=== PATIENT | female | born 1965 | race Caucasian/White ===

== ENCOUNTER 2017-09-05 09:54 | Inpatient (IN) | payer MEDICAID ==
[2017-09-05] VITALS (9 sets, daily range): BP systolic 138–192; BP diastolic 68–110; PULSE 101–133; RESP 18–24; TEMP 97.8–98.3; O2SAT 93–95
[~2017-09-05] VITALS: Ht 181.6 cm; Wt 96.9 kg
[~2017-09-05 09:54] MED LIST: ATRO17AE INH; CELE100C PO; CYCL-36 PO; DUONSOL2 NEB; FLUTI110I INH; LEVO75TA3 PO; LEXA10TA PO; LORTA5 PO; LURA1TAB PO; NAPR-697 PO; NEUR600T PO; OMEP20TA PO; SIMV10 PO; TRAZ150T75 PO; VENTAER INH
[2017-09-05] MEDS ORDERED: SODIUM CHLORID 0.9% 500 ML INJ 500 ML IV ONE (10:30)
[2017-09-05] MEDS ORDERED: SODIUM CHLORIDE 0.9% FLUSH 10 ML FLUSH IVF PRN (10:30)
[2017-09-05] MEDS ORDERED: methylPREDNISolone SOD SUCC 125 MG/2 ML VIAL IV PUSH ONE (10:30)
[2017-09-05] MEDS: RESP: ALBUTEROL 2.5 MG/IPRATROPIUM 0.5 MG NEB (SCH) INH ×2 (10:30→10:31)
--- NOTE | 2017-09-05 10:49 | PD ---
HPI Chief Complaint: Cold / Flu Symptoms Time Seen by Provider: 10:05 Travel History International Travel<30 days: No Contact w/Intl Traveler<30days: No Traveled to known affect area: No History of Present Illness HPI The patient is a 52-year-old female who presents to the emergency department for shortness of breath. The patient states that her shortness of breath has been ongoing for several weeks, recently progressive the last several days. The patient does complain of a dry mostly nonproductive cough, wheezing, now states she has lost her voice. The patient does have a history of COPD, denies any history CHF, pulmonary embolism, or DVT. She denies any recent hospitalizations, travel, surgeries, or lower extremity edema. She denies any assisted fever, chills, or sweats. She does complain of shortness of breath that is worse with exertion, but still present at rest. She has been using her inhalers at home with minimal relief of her symptoms. The patient's primary physician is Dr. Adan. Symptoms are moderate, progressive last several weeks, and there are no current alleviating factors. The patient does complain of bilateral lower chest wall pain with coughing, but denies any substernal pressure or discomfort. She denies any associated nausea, vomiting, or diaphoresis. PFSH Past Medical History Bipolar Disorder: Yes Depression: Yes High Cholesterol: Yes COPD: Yes Diabetes: Yes Patient Takes Glucophage: Yes Hepatitis: Yes (HEPATITIS C) Musculoskeletal: Yes (IN PAIN MANAGEMENT FOR CHRONIC BACK PAIN ) Respiratory: Yes (COPD) Thyroid Disease: Yes ?: Not : 1 Para: 1 Miscarriage: 0 : 0 Past Surgical History Appendectomy: Yes Social History Alcohol Use: No Tobacco Use: Yes (/2 PPD) Substance Use: No Allergies-Medications (Allergen,Severity, Reaction): Coded Allergies: No Known Allergies (Verified Allergy, Unknown, 09/05/17) Reported Meds & Prescriptions Reported Meds & Active Scripts Active Reported Flovent Hfa 12 GM Inh (Fluticasone Propionate) 220 Mcg/Act Inh 2 Puff INH TID Use daily at the same time. Dulera 120 Act Inh (Mometasone-Formoterol 120 Act Inh) 200-5 Mcg/Act Inh 2 Puff INH BID Atrovent HFA 12.9 GM Inh (Ipratropium [place]) 17 Mcg/Actuation Aer 2 Puff INH TID Metformin (Metformin HCl) 850 Mg Tab 850 Mg PO BIDPC Simvastatin 10 Mg Tab 10 Mg PO DAILY Gabapentin 600 Mg Tab 600 Mg PO TID Methocarbamol 500 Mg Tab 500 Mg PO TID Hydrocodone-Acetaminophen 5-325 mg Tab 1 Tab PO Q12HR PRN Celecoxib 100 Mg Cap 100 Mg PO BID Escitalopram (Escitalopram Oxalate) 20 Mg Tab 20 Mg PO DAILY Naproxen 500 Mg Tab 500 Mg PO BID Trazodone (Trazodone HCl) 150 Mg Tablet 150 Mg PO HS Omeprazole 20 Mg Tab 20 Mg PO DAILY Latuda (Lurasidone) 80 Mg Tab 80 Mg PO DAILY Review of Systems Except as stated in HPI: all other systems reviewed are Neg General / Constitutional: No: Fever HENT: No: Headaches, Lightheadedness Cardiovascular: Positive: Other (bilateral lower rib pain secondary to coughing ), No: Chest Pain or Discomfort, Diaphoresis Respiratory: Positive: Cough, Shortness of Breath, Wheezing Gastrointestinal: No: Nausea, Vomiting, Abdominal Pain Musculoskeletal: No: Edema Neurologic: No: Weakness Physical Exam Narrative GENERAL: Awake, alert, pleasant 52-year-old female who appears her stated age and is in mild respiratory distress. SKIN: Focused skin assessment warm/dry. HEAD: Atraumatic. Normocephalic. EYES: Pupils equal and round. No scleral icterus. No injection or drainage. ENT: No nasal bleeding or discharge. Mucous membranes pink and moist. NECK: Trachea midline. No JVD. CARDIOVASCULAR: Regular, tachycardic with a heart rate of 130. RESPIRATORY: Mild tachypnea with a respiratory rate of 22. Diminished breath sounds with audible wheezing. GASTROINTESTINAL: Abdomen soft, non-tender, nondistended. No rebound tenderness. MUSCULOSKELETAL: No obvious deformities. No clubbing. No cyanosis. No edema. Calves are soft bilaterally. NEUROLOGICAL: Awake and alert. No obvious cranial nerve deficits. Motor grossly within normal limits. Normal speech. PSYCHIATRIC: Appropriate mood and affect; insight and judgment normal. Data Data Last Documented VS Vital Signs Date Time Temp Pulse Resp B/P (MAP) Pulse Ox O2 Delivery O2 Flow Rate FiO2 09/05/17 12:36 113 18 141/68 (92) 95 Room Air 09/05/17 10:32 21 09/05/17 09:57 98.3 Orders Orders Complete Blood Count With Diff (09/05/17 10:20) Comprehensive Metabolic Panel (09/05/17 10:20) B-Type Natriuretic Peptide (09/05/17 10:20) Act Partial Throm Time (Ptt) (09/05/17 10:20) Prothrombin Time / Inr (Pt) (09/05/17 10:20) Magnesium (Mg) (09/05/17 10:20) Ckmb (Isoenzyme) Profile (09/05/17 10:20) Troponin I (09/05/17 10:20) Influenzae A/B Antigen (09/05/17 10:20) Blood Culture (09/05/17 10:20) Iv Access Insert/Monitor (09/05/17 10:20) Electrocardiogram (09/05/17 10:20) Ecg Monitoring (09/05/17 10:20) Oximetry (09/05/17 10:20) Oxygen Administration (09/05/17 10:20) Chest, Single Ap (09/05/17 10:20) Sodium Chloride 0.9% Flush (Ns Flush) (09/05/17 10:30) Methylprednisolone So Succ Inj (Solumedr (09/05/17 10:30) Albuterol-Ipratropium Neb (Duoneb Neb) (09/05/17 10:30) Lactic Acid (09/05/17 10:20) Sodium Chlorid 0.9% 500 Ml Inj (Ns 500 M (09/05/17 10:30) Ct Pulmonary Angiogram (09/05/17 ) CKMB (09/05/17 11:10) CKMB% (09/05/17 11:10) Iohexol 350 Inj (Omnipaque 350 Inj) (09/05/17 13:08) Ceftriaxone Inj (Rocephin Inj) (09/05/17 13:30) Azithromycin Inj (Zithromax Inj) (09/05/17 13:30) Admit Order (Ed Use Only) (09/05/17 14:07) Sodium Chlor 0.9% 1000 Ml Inj (Ns 1000 M (09/05/17 14:15) Labs Laboratory Tests Test 09/05/17 11:00 09/05/17 11:10 White Blood Count 19.8 TH/MM3 Red Blood Count 4.10 MIL/MM3 Hemoglobin 12.1 GM/DL Hematocrit 36.7 % Mean Corpuscular Volume 89.4 FL Mean Corpuscular Hemoglobin 29.5 PG Mean Corpuscular Hemoglobin Concent 32.9 % Red Cell Distribution Width 15.2 % Platelet Count 474 TH/MM3 Mean Platelet Volume 8.6 FL Neutrophils (%) (Auto) 61.7 % Lymphocytes (%) (Auto) 27.8 % Monocytes (%) (Auto) 8.5 % Eosinophils (%) (Auto) 1.5 % Basophils (%) (Auto) 0.5 % Neutrophils # (Auto) 12.2 TH/MM3 Lymphocytes # (Auto) 5.5 TH/MM3 Monocytes # (Auto) 1.7 TH/MM3 Eosinophils # (Auto) 0.3 TH/MM3 Basophils # (Auto) 0.1 TH/MM3 CBC Comment AUTO DIFF Differential Total Cells Counted 100 Neutrophils % (Manual) 70 % Band Neutrophils % 1 % Lymphocytes % 22 % Monocytes % 5 % Basophils % 1 % Neutrophils # (Manual) 14.3 TH/MM3 Metamyelocytes 1 % Differential Comment FINAL DIFF MANUAL Platelet Estimate HIGH Platelet Morphology Comment NORMAL Red Cell Morphology Comment NORMAL Lactic Acid Level 1.4 mmol/L B-Type Natriuretic Peptide 7 PG/ML Prothrombin Time 10.7 SEC Prothromb Time International Ratio 1.1 RATIO Activated Partial Thromboplast Time 24.9 SEC Blood Urea Nitrogen 7 MG/DL Creatinine 0.57 MG/DL Random Glucose 94 MG/DL Total Protein 7.9 GM/DL Albumin 2.5 GM/DL Calcium Level 8.5 MG/DL Magnesium Level 1.5 MG/DL Alkaline Phosphatase 99 U/L Aspartate Amino Transf (AST/SGOT) 34 U/L Alanine Aminotransferase (ALT/SGPT) 46 U/L Total Bilirubin 0.2 MG/DL Sodium Level 135 MEQ/L Potassium Level 4.4 MEQ/L Chloride Level 101 MEQ/L Carbon Dioxide Level 25.7 MEQ/L Anion Gap 8 MEQ/L Estimat Glomerular Filtration Rate 111 ML/MIN Total Creatine Kinase 233 U/L Creatine Kinase MB 5.9 NG/ML Creatine Kinase MB % 2.5 % Troponin I LESS THAN 0.02 NG/ML MDM Medical Decision Making Medical Screen Exam Complete: Yes Emergency Medical Condition: Yes Medical Record Reviewed: Yes Interpretation(s) EKG reveals sinus tachycardia with a heart rate of 117. RSR prime in V1. Laboratory Tests Test 09/05/17 11:00 09/05/17 11:10 White Blood Count 19.8 TH/MM3 Red Blood Count 4.10 MIL/MM3 Hemoglobin 12.1 GM/DL Hematocrit 36.7 % Mean Corpuscular Volume 89.4 FL Mean Corpuscular Hemoglobin 29.5 PG Mean Corpuscular Hemoglobin Concent 32.9 % Red Cell Distribution Width 15.2 % Platelet Count 474 TH/MM3 Mean Platelet Volume 8.6 FL Neutrophils (%) (Auto) 61.7 % Lymphocytes (%) (Auto) 27.8 % Monocytes (%) (Auto) 8.5 % Eosinophils (%) (Auto) 1.5 % Basophils (%) (Auto) 0.5 % Neutrophils # (Auto) 12.2 TH/MM3 Lymphocytes # (Auto) 5.5 TH/MM3 Monocytes # (Auto) 1.7 TH/MM3 Eosinophils # (Auto) 0.3 TH/MM3 Basophils # (Auto) 0.1 TH/MM3 CBC Comment AUTO DIFF Differential Total Cells Counted 100 Neutrophils % (Manual) 70 % Band Neutrophils % 1 % Lymphocytes % 22 % Monocytes % 5 % Basophils % 1 % Neutrophils # (Manual) 14.3 TH/MM3 Metamyelocytes 1 % Differential Comment FINAL DIFF MANUAL Platelet Estimate HIGH Platelet Morphology Comment NORMAL Red Cell Morphology Comment NORMAL Lactic Acid Level 1.4 mmol/L B-Type Natriuretic Peptide 7 PG/ML Prothrombin Time 10.7 SEC Prothromb Time International Ratio 1.1 RATIO Activated Partial Thromboplast Time 24.9 SEC Blood Urea Nitrogen 7 MG/DL Creatinine 0.57 MG/DL Random Glucose 94 MG/DL Total Protein 7.9 GM/DL Albumin 2.5 GM/DL Calcium Level 8.5 MG/DL Magnesium Level 1.5 MG/DL Alkaline Phosphatase 99 U/L Aspartate Amino Transf (AST/SGOT) 34 U/L Alanine Aminotransferase (ALT/SGPT) 46 U/L Total Bilirubin 0.2 MG/DL Sodium Level 135 MEQ/L Potassium Level 4.4 MEQ/L Chloride Level 101 MEQ/L Carbon Dioxide Level 25.7 MEQ/L Anion Gap 8 MEQ/L Estimat Glomerular Filtration Rate 111 ML/MIN Total Creatine Kinase 233 U/L Creatine Kinase MB 5.9 NG/ML Creatine Kinase MB % 2.5 % Troponin I LESS THAN 0.02 NG/ML Last Impressions Chest X-Ray 09/05/17 1020 Signed Impressions: Service Date/Time: September 10:35 - CONCLUSION: 1. No acute cardiopulmonary disease. Luke Li MD CT Angiography 09/05/17 0000 Signed Impressions: Service Date/Time: September 12:47 - CONCLUSION: 1. No evidence of pulmonary embolism. 2. Scattered patchy opacities bilaterally consistent with probable pneumonia. Clinical correlation is recommended. Followup CT of the chest after treatment for pneumonia is recommended to confirm resolution of these patchy opacities. 3. Tiny pericardial effusion. 4. Stable bilateral adrenal nodules measuring 2.6 x 1.5 cm on the right and 2.5 x 1.8 cm on the left. Carlos Lofton MD Differential Diagnosis Differential diagnosis includes COPD exacerbation, bronchitis, pneumonia, pleural effusion, congestive heart failure, ACS, pulmonary embolism. Narrative Course IV was established, labs are drawn and sent, and the patient was placed on cardiac telemetry monitoring and continuous pulse oximetry monitoring. EKG was ordered and interpreted. Chest x-ray was obtained. The patient was administered Solu-Medrol 125 mg intravenously and duo nebs 3. Chest x-rays unremarkable. White count is elevated and 19.8. Lactic acid and BNP are normal. The patient continued be tachycardic at 115, therefore, CT pulmonary angiogram was ordered to evaluate for possible pulmonary embolism. CT reveals bilateral pneumonia, therefore, patient was administered Rocephin and Zithromax. The patient's white count is elevated, she is tachycardic, consistent with sepsis. Patient was administered another liter of IV fluids. She will be admitted to the on-call medical service. Sepsis Criteria SIRS Criteria (2 or more): Heart rate over 90, RR > 20 or PaCO2 < 32, WBC > 58893, < 4000 or > 10% bands Sepsis Criteria (SIRS+source): Infect source susp/known Criteria Outcome: Meets sepsis criteria Physician Communication Physician Communication [facility] I discussed the patient with Dr. Adamson who agrees with admission. Diagnosis Primary Impression: Bilateral pneumonia Qualified Codes: J18.9 - Pneumonia, unspecified organism Additional Impression: Sepsis Qualified Codes: A41.9 - Sepsis, unspecified organism Admitting Information Admitting Physician Requests: Admit Condition: Stable Tyshawn Leonardo MD Sep 05, 2017 10:49
--- NOTE | 2017-09-05 11:07 | RADRPT ---
EXAM DATE/TIME: 09/05/2017 10:35 [facility] COMPARISON: CHEST SINGLE AP, November 29, 2015, 13:32. INDICATIONS : Short of breath MEDICAL HISTORY : Chronic obstructive pulmonary disease. SURGICAL HISTORY : None. ENCOUNTER: Initial ACUITY: 2 weeks PAIN SCORE: 3/10 LOCATION: Bilateral chest FINDINGS: A single view of the chest demonstrates the lungs to be symmetrically aerated without evidence of mas s, infiltrate or effusion. The cardiomediastinal contours are unremarkable. Osseous structures are intact. CONCLUSION: 1. No acute cardiopulmonary disease. Luke Li MD on September 05, 2017 at 11:05 Board Certified Radiologist. This report was verified electronically.
[2017-09-05 11:43] LABS: AUTOMATED NEUTROPHIL # 12.2 TH/MM3 (1.8-7.7); BASOPHIL # 0.1 TH/MM3 (0-0.2); BASOPHIL % 0.5 % (0.0-2.0); EOSINOPHIL # 0.3 TH/MM3 (0-0.4); EOSINOPHIL % 1.5 % (0.0-4.0); HEMATOCRIT 36.7 % (35.0-46.0); HEMOGLOBIN 12.1 GM/DL (11.6-15.3); LYMPH % 27.8 % (9.0-44.0); LYMPHOCYTE # 5.5 TH/MM3 (1.0-4.8); MEAN CELL VOLUME 89.4 FL (80.0-100.0); MEAN CORPUSCULAR HEMOGLOBIN 29.5 PG (27.0-34.0); MEAN CORPUSCULAR HGB CONC 32.9 % (32.0-36.0); MEAN PLATELET VOLUME 8.6 FL (7.0-11.0); MONO % 8.5 % (0.0-8.0); MONOCYTE # 1.7 TH/MM3 (0-0.9); NEUT % 61.7 % (16.0-70.0); PLATELET COUNT 474 TH/MM3 (150-450); RED CELL DISTRIBUTION WIDTH 15.2 % (11.6-17.2); WHITE BLOOD COUNT 19.8 TH/MM3 (4.0-11.0)
[2017-09-05 11:52] LABS: INTERNATIONAL NORMALIZED RATIO 1.1 RATIO; PROTHROMBIN TIME - PATIENT 10.7 SEC (9.8-11.6)
[2017-09-05 12:02] LABS: ALBUMIN 2.5 GM/DL (3.4-5.0); ALT (GPT) 46 U/L (10-53); AST (GOT) 34 U/L (15-37); BICARBONATE 25.7 MEQ/L (21.0-32.0); BLOOD UREA NITROGEN 7 MG/DL (7-18); CALCIUM 8.5 MG/DL (8.5-10.1); CHLORIDE 101 MEQ/L (98-107); CREATININE 0.57 MG/DL (0.50-1.00); GLOMERULAR FILTRATION RATE 111 ML/MIN (>89); GLUCOSE,RANDOM 94 MG/DL (74-106); MAGNESIUM 1.5 MG/DL (1.5-2.5); SODIUM (NA) 135 MEQ/L (136-145)
[2017-09-05 12:06] LABS: ALKALINE PHOSPHATASE 99 U/L (45-117); TOTAL BILIRUBIN ADULT 0.2 MG/DL (0.2-1.0); TOTAL PROTEIN 7.9 GM/DL (6.4-8.2); TROPONIN I LESS THAN 0.02 NG/ML (0.02-0.05)
[2017-09-05 12:25] LABS: BANDS 1 % (0-6); BASOPHILS 1 % (0-2); LYMPHOCYTES 22 % (9-44); METAMYELOCYTES 1 % (0-1); MONOCYTES 5 % (0-8); NEUTROPHIL # MANUAL DIFF 14.3 TH/MM3 (1.8-7.7); POLYS (SEG NEUTROPHILS) 70 % (16-70)
[2017-09-05] MEDS ORDERED: IOHEXOL 350 MG/ML 10 ML VIAL (for RAD DIAG) IVCONTRAST ONE (13:08)
--- NOTE | 2017-09-05 13:25 | RADRPT ---
EXAM DATE/TIME: 09/05/2017 12:47 [facility] COMPARISON: CT PULMONARY ANGIOGRAM, November 29, 2015, 16:03. INDICATIONS : Short of breath, cough IV CONTRAST: 75 cc Omnipaque 350 (iohexol) IV RADIATION DOSE: 11.02 CTDIvol (mGy) MEDICAL HISTORY : Chronic obstructive pulmonary disease. Hepatitis C. Diabetes SURGICAL HISTORY : Appendectomy. ENCOUNTER: Initial ACUITY: 3 days PAIN SCALE: 5/10 LOCATION: chest TECHNIQUE: Volumetric scanning of the chest was performed using a pulmonary embolism protocol MIP images were re constructed. Using automated exposure control and adjustment of the mA and/or kV according to patien t size, radiation dose was kept as low as reasonably achievable to obtain optimal diagnostic quality images. DICOM format image data is available electronically for review and comparison. Follow-up recommendations for detected pulmonary nodules are based at a minimum on nodule size and pa tient risk factors according to Fleischner Society Guidelines. FINDINGS: There is no evidence of pulmonary embolism. Scattered patchy opacities are noted bilaterally consiste nt with probable pneumonia. Clinical correlation is recommended. Followup CT of the chest after treat ment for pneumonia is recommended to confirm resolution of these scattered patchy opacities. Tiny per icardial effusion is noted. No mediastinal, hilar or axillary lymphadenopathy is noted. No pleural ef fusion is noted. Bilateral adrenal nodules are stable and measure 2.6 x 1.5 cm on the right and 2.5 x 1.8 cm on the left. CONCLUSION: 1. No evidence of pulmonary embolism. 2. Scattered patchy opacities bilaterally consistent with probable pneumonia. Clinical correlation is recommended. Followup CT of the chest after treatment for pneumonia is recommended to confirm resolu tion of these patchy opacities. 3. Tiny pericardial effusion. 4. Stable bilateral adrenal nodules measuring 2.6 x 1.5 cm on the right and 2.5 x 1.8 cm on the left. Carlos Lofton MD on September 05, 2017 at 13:17 Board Certified Radiologist. This report was verified electronically.
[2017-09-05] MEDS ORDERED: cefTRIAXone INJ 1,000 MG in SODIUM CHLORIDE 0.9% INJ 100 ML IV ONE (13:30)
[2017-09-05] MEDS ORDERED: AZITHROMYCIN INJ 500 MG in SODIUM CHLOR 0.9% 250 ML INJ 250 ML IV ONE (13:30)
[2017-09-05] MEDS ORDERED: IPRA17I INH (13:55)
[2017-09-05] MEDS ORDERED: METH500T3 PO (13:55)
[2017-09-05] MEDS ORDERED: ESCI20TA PO (13:55)
[2017-09-05] MEDS ORDERED: CELE1CAP6 PO (13:55)
[2017-09-05] MEDS ORDERED: LURA80 PO (13:55)
[2017-09-05] MEDS ORDERED: FLUTI220I INH (13:55)
[2017-09-05] MEDS ORDERED: NAPR500T2 PO (13:55)
[2017-09-05] MEDS ORDERED: TRAZ1TAB14 PO (13:55)
[2017-09-05] MEDS ORDERED: SIMV10TA PO (13:55)
[2017-09-05] MEDS ORDERED: METF850T PO (13:55)
[2017-09-05] MEDS ORDERED: HYDR-3516 PO (13:55)
[2017-09-05] MEDS ORDERED: GABA600T PO (13:55)
[2017-09-05] MEDS ORDERED: OMEP20TA93 PO (13:55)
[2017-09-05] MEDS ORDERED: DULE200A INH (13:55)
[2017-09-05] MEDS ORDERED: SODIUM CHLOR 0.9% 1000 ML INJ 1,000 ML IV ONE (14:15)
[2017-09-05] MEDS ORDERED: NALOXONE HCL 0.4 MG/ML AMP IV PUSH PRN (15:45)
[2017-09-05] MEDS ORDERED: SODIUM CHLORIDE 0.9% FLUSH 10 ML FLUSH IV FLUSH PRN (15:45)
[2017-09-05] MEDS ORDERED: ACETAMINOPHEN 325 MG TAB PO PRN ×2 (15:45)
[2017-09-05] MEDS ORDERED: ONDANSETRON HCL 4 MG/2 ML VIAL IVP PRN (15:45)
[2017-09-05] MEDS ORDERED: ACETAMINOPHEN/HYDROcodone 325 MG/5 MG TAB PO PRN (15:45)
[2017-09-05] MEDS ORDERED: PILL SPLITTER OTHER PRN (16:30)
[2017-09-05] MEDS ORDERED: RESP: ALBUTEROL 2.5 MG/IPRATROPIUM 0.5 MG NEB (PRN) NEB (16:45)
--- NOTE | 2017-09-05 16:52 | HHI.HP ---
[facility] Service [place] [facility] Primary Care Physician Artur Adan M.D. Admission Diagnosis bilateral pneumonia, sepsis, leukocytosis, hypoxia Diagnoses: Chief Complaint: Shortness of breath, cough Travel History International Travel<30 Days: No Contact w/Intl Traveler <30 Da: No Traveled to Known Affected Are: No History of Present Illness The patient is a 52-year-old female with a past medical history of COPD who is presenting to the hospital with shortness of breath and cough. She says her breathing is always poor but over the past couple of weeks she has experienced worsening of her shortness of breath and cough. She says that her significant other thought the flu and brought it home to her. She said that she did get her flu shot this year. She said that her breathing got a lot more difficult and her coughing has been uncontrollable. She is not on home oxygen. She does endorse grayish mucus production. She says that she has not noticed any fevers at home. She does continue to smoke cigarettes and knows that she needs to quit. She says she started to develop a hoarse voice last week. She denies any dysuria and has been having regular bowel movements. She complains of chronic pain in her knee and back. Review of Systems Except as stated in HPI: all other systems reviewed are Neg Past Family Social History Past Medical History COPD Diabetes Hepatitis C virus Bipolar disorder Osteoarthritis Past Surgical History Appendectomy Right knee fracture status post surgery Allergies: Coded Allergies: No Known Allergies (Verified Allergy, Unknown, 09/05/17) Active Ordered Medications Current Medications Medications (Trade) Dose Ordered Sig/Corrine Route Start Time Stop Time Status Last Admin (CeleBREX) 100 mg BID PO 09/05/17 21:00 (Lexapro) 20 mg DAILY PO 09/06/17 09:00 (Neurontin) 600 mg TID PO 09/05/17 18:00 (Latuda) 80 mg DAILY PO 09/06/17 09:00 (Protonix) 20 mg DAILY PO 09/06/17 09:00 (Pravachol) 20 mg DAILY PO 09/06/17 09:00 (Desyrel) 150 mg HS PO 09/05/17 21:00 Sodium Chloride 1,000 ml @ 100 mls/hr Q10H IV 09/05/17 16:00 (NS Flush) 2 ml UNSCH PRN IV FLUSH 09/05/17 15:45 (NS Flush) 2 ml BID IV FLUSH 09/05/17 21:00 (Tylenol) 650 mg Q4H PRN PO 09/05/17 15:45 (Zofran Inj) 4 mg Q6H PRN IVP 09/05/17 15:45 (Lovenox Inj) 30 mg Q24H SQ 09/05/17 17:00 (Tylenol) 650 mg Q6H PRN PO 09/05/17 15:45 ([place] 5-325 Mg) 1 tab Q4H PRN PO 09/05/17 15:45 ([place] 10-325 Mg) 1 tab Q4H PRN PO 09/05/17 15:45 (Narcan Inj) 0.4 mg UNSCH PRN IV PUSH 09/05/17 15:45 (Shameka-Colace) 1 tab BID PO 09/05/17 21:00 (Pill Splitter) 1 ea UNSCH PRN OTHER 09/05/17 16:30 (SoluMEDROL INJ) 40 mg Q8HR IV PUSH 09/05/17 16:45 UNV (Duoneb Neb) 1 ampule Q2HR NEB PRN NEB 09/05/17 16:45 UNV (Duoneb Neb) 1 ampule Q6HR WHILE AWAKE NEB NEB 09/05/17 16:45 UNV (Robitussin Ac 200-20 Mg/10 ml Liq) 10 ml ONCE ONCE PO 09/05/17 16:45 09/05/17 16:46 UNV (Robitussin Ac 200-20 Mg/10 ml Liq) 10 ml Q6H PRN PO 09/05/17 16:45 UNV Ceftriaxone Sodium 1000 mg/ Sodium Chloride 100 ml @ 200 mls/hr Q24H IV 09/06/17 13:00 UNV Azithromycin 500 mg/Sodium Chloride 250 ml @ 250 mls/hr Q24H IV 09/06/17 13:00 UNV Family History Various cancers Bipolar disorder Schizophrenia Social History The patient smokes one pack daily. She does not drink or use illicit substances. Physical Exam Vital Signs Vital Signs Date Time Temp Pulse Resp B/P (MAP) Pulse Ox O2 Delivery O2 Flow Rate FiO2 09/05/17 12:36 113 18 141/68 (92) 95 Room Air 09/05/17 11:56 95 09/05/17 11:55 18 95 09/05/17 11:55 95 Room Air 09/05/17 10:32 95 21 09/05/17 09:57 98.3 133 24 177/93 (121) 95 Room Air Physical Exam GENERAL: This is a well-nourished, well-developed patient, coughing uncontrollably. SKIN: No rashes, ecchymoses or lesions. Cool and dry. HEAD: Atraumatic. Normocephalic. No temporal or scalp tenderness. EYES: Pupils equal round and reactive. Extraocular motions intact. No scleral icterus. No injection or drainage. ENT: Nose without bleeding, purulent drainage or septal hematoma. Throat without erythema, tonsillar hypertrophy or exudate. Uvula midline. Airway patent. Hoarse voice. NECK: Trachea midline. No JVD or lymphadenopathy. Supple, nontender, no meningeal signs. CARDIOVASCULAR: Tachycardic. No obvious murmur. RESPIRATORY: Decreased air movement in bilateral wheezing appreciated. GASTROINTESTINAL: Abdomen soft, non-tender, nondistended. No hepato-splenomegaly , or palpable masses. No guarding. MUSCULOSKELETAL: Extremities without clubbing, cyanosis, or edema. No joint tenderness, effusion, or edema noted. NEUROLOGICAL: Awake and alert. Cranial nerves II through XII intact. Motor and sensory grossly within normal limits. Five out of 5 muscle strength in all muscle groups. Normal speech. Laboratory Laboratory Tests Test 09/05/17 11:00 09/05/17 11:10 White Blood Count 19.8 Red Blood Count 4.10 Hemoglobin 12.1 Hematocrit 36.7 Mean Corpuscular Volume 89.4 Mean Corpuscular Hemoglobin 29.5 Mean Corpuscular Hemoglobin Concent 32.9 Red Cell Distribution Width 15.2 Platelet Count 474 Mean Platelet Volume 8.6 Neutrophils (%) (Auto) 61.7 Lymphocytes (%) (Auto) 27.8 Monocytes (%) (Auto) 8.5 Eosinophils (%) (Auto) 1.5 Basophils (%) (Auto) 0.5 Neutrophils # (Auto) 12.2 Lymphocytes # (Auto) 5.5 Monocytes # (Auto) 1.7 Eosinophils # (Auto) 0.3 Basophils # (Auto) 0.1 CBC Comment AUTO DIFF Differential Total Cells Counted 100 Neutrophils % (Manual) 70 Band Neutrophils % 1 Lymphocytes % 22 Monocytes % 5 Basophils % 1 Neutrophils # (Manual) 14.3 Metamyelocytes 1 Differential Comment FINAL DIFF MANUAL Platelet Estimate HIGH Platelet Morphology Comment NORMAL Red Cell Morphology Comment NORMAL Lactic Acid Level 1.4 B-Type Natriuretic Peptide 7 Prothrombin Time 10.7 Prothromb Time International Ratio 1.1 Activated Partial Thromboplast Time 24.9 Blood Urea Nitrogen 7 Creatinine 0.57 Random Glucose 94 Total Protein 7.9 Albumin 2.5 Calcium Level 8.5 Magnesium Level 1.5 Alkaline Phosphatase 99 Aspartate Amino Transf (AST/SGOT) 34 Alanine Aminotransferase (ALT/SGPT) 46 Total Bilirubin 0.2 Sodium Level 135 Potassium Level 4.4 Chloride Level 101 Carbon Dioxide Level 25.7 Anion Gap 8 Estimat Glomerular Filtration Rate 111 Total Creatine Kinase 233 Creatine Kinase MB 5.9 Creatine Kinase MB % 2.5 Troponin I LESS THAN 0.02 Date/Time Source Procedure Growth Status 09/05/17 11:00 Blood Peripheral Aerobic Blood Culture Pending Received 09/05/17 11:00 Blood Peripheral Anaerobic Blood Culture Pending Received 09/05/17 11:10 Nasal Aspirate Influenza Types A,B Antigen (MUSA) - Final NEGATIVE FOR FLU A AND B ANTIGEN.... Complete Result Diagram: 09/05/17 1100 09/05/17 1110 Imaging Last Impressions Chest X-Ray 09/05/17 1020 Signed Impressions: Service Date/Time: September 10:35 - CONCLUSION: 1. No acute cardiopulmonary disease. Luke Li MD CT Angiography 09/05/17 0000 Signed Impressions: Service Date/Time: September 12:47 - CONCLUSION: 1. No evidence of pulmonary embolism. 2. Scattered patchy opacities bilaterally consistent with probable pneumonia. Clinical correlation is recommended. Followup CT of the chest after treatment for pneumonia is recommended to confirm resolution of these patchy opacities. 3. Tiny pericardial effusion. 4. Stable bilateral adrenal nodules measuring 2.6 x 1.5 cm on the right and 2.5 x 1.8 cm on the left. MD Margarita Piña VTE Risk Assessment Caprini VTE Risk Assessment: Mod/High Risk (score >= 2) Caprini Risk Assessment Model Point Value = 1 Point Value = 2 Point Value = 3 Point Value = 5 Age 41-60 Minor surgery BMI > 25 kg/m2 Swollen legs Varicose veins or History of unexplained or recurrent spontaneous Oral contraceptives or hormone replacement Sepsis (< 1 month) Serious lung disease, including pneumonia (< 1 month) Abnormal pulmonary function Acute myocardial infarction Congestive heart failure (< 1 month) History of inflammatory bowel disease Medical patient at bed rest Age 61-74 Arthroscopic surgery Major open surgery (> 45 min) Laparoscopic surgery (> 45 min) Malignancy Confined to bed (> 72 hours) Immobilizing plaster cast Central venous access Age >= 75 History of VTE Family history of VTE Factor V Leiden Prothrombin [id number] Lupus anticoagulant Anticardiolipin antibodies Elevated serum homocysteine Heparin-induced thrombocytopenia Other congenital or acquired thrombophilia Stroke (< 1 month) Elective arthroplasty Hip, pelvis, or leg fracture Acute spinal cord injury (< 1 month) Prophylaxis Regimen Total Risk Factor Score Risk Level Prophylaxis Regimen 0-1 Low Early ambulation 2 Moderate Order ONE of the following: *Sequential Compression Device (SCD) *Heparin 5000 units SQ BID 3-4 Higher Order ONE of the following medications: *Heparin 5000 units SQ TID *Enoxaparin/Lovenox 40 mg SQ daily (WT < 150 kg, CrCl > 30 mL/min) *Enoxaparin/Lovenox 30 mg SQ daily (WT < 150 kg, CrCl > 10-29 mL/min) *Enoxaparin/Lovenox 30 mg SQ BID (WT < 150 kg, CrCl > 30 mL/min) AND/OR *Sequential Compression Device (SCD) 5 or more Highest Order ONE of the following medications: *Heparin 5000 units SQ TID (Preferred with Epidurals) *Enoxaparin/Lovenox 40 mg SQ daily (WT < 150 kg, CrCl > 30 mL/min) *Enoxaparin/Lovenox 30 mg SQ daily (WT < 150 kg, CrCl > 10-29 mL/min) *Enoxaparin/Lovenox 30 mg SQ BID (WT < 150 kg, CrCl > 30 mL/min) AND *Sequential Compression Device (SCD) Assessment and Plan Assessment and Plan COPD exacerbation/ CAP The patient presents with worsening shortness of breath and coughing. She was influenza negative. Chest CT showed: No evidence of pulmonary embolism; Scattered patchy opacities bilaterally consistent with probable pneumonia; Followup CT of the chest after treatment for pneumonia is recommended to confirm resolution of these patchy opacities. S/p ceftriaxone and azithromycin in the ED. - Change antibiotics to IV doxycycline to avoid interaction with her psychiatric medications. - Continue IV Solu-Medrol. - Standing and as needed nebulizers. - Oxygen as needed. - Incentive spirometry. - Encourage ambulation. - Sputum and blood cultures pending. - Smoking cessation instruction. - Robitussin-AC as needed. - Resume home COPD regimen as steroids and nebs were weaned off. Chronic pain The patient endorses chronic knee and back pain. - Physical therapy. - Continue [place] as needed. - Continue celecoxib. Diabetes The patient is on metformin as an outpatient. - Hold metformin. - Insulin sliding scale. Tobacco abuse The patient smokes 1 pack of cigarettes daily. - Cessation instruction. - Nicotine patch. Adrenal nodules CT scan revealed stable bilateral adrenal nodules measuring 2.6 x 1.5 cm on the right and 2.5 x 1.8 cm on the left. - Outpatient follow-up. PPx: Lovenox Discussed Condition With Patient, Dr. Leonardo, nurse Physician Certification 2 Midnight Certification Type: Admission for Inpatient Services Order for Inpatient Services The services are ordered in accordance with Medicare regulations or non- Medicare payer requirements, as applicable. In the case of services not specified as inpatient-only, they are appropriately provided as inpatient services in accordance with the 2-midnight benchmark. Estimated LOS (days): 2 days is the estimated time the patient will need to remain in the hospital, assuming treatment plan goals are met and no additional complications. Post-Hospital Plan: Home Cory Adamson DO Sep 05, 2017 16:52
[2017-09-05] MEDS: SODIUM CHLOR 0.9% 1000 ML INJ 1,000 ML IV SCH ×2 (17:00→23:13)
[2017-09-05] MEDS: ENOXAPARIN SODIUM 30 MG/0.3 ML SYRINGE SQ SCH (18:19)
[2017-09-05] MEDS: GABAPENTIN 300 MG CAP PO SCH (18:19)
[2017-09-05] MEDS ORDERED: guaiFENesin/CODEINE SYRUP 200 MG/20 MG/10 ML CUP PO ONE (18:45)
[2017-09-05] MEDS: NICOTINE 21 MG/24 HR PATCH T-DERMAL SCH (18:57)
[2017-09-05] MEDS: methylPREDNISolone SOD SUCC 40 MG/1 ML VIAL IV PUSH SCH ×2 (18:57→21:29)
[2017-09-05] MEDS ORDERED: DEXTROSE 50% IN WATER 50 ML VIAL(D50) IV PUSH PRN (19:00)
[2017-09-05] MEDS ORDERED: GLUCAGON 1 MG/ML VIAL OTHER PRN (19:00)
[2017-09-05] MEDS: RESP: ALBUTEROL 2.5 MG/IPRATROPIUM 0.5 MG NEB (SCH) NEB (19:24)
[2017-09-05] MEDS: INSULIN ASPART SUPPLEMENTAL SCALE SQ SCH ×2 (19:24→21:00)
[2017-09-05] MEDS: ACETAMINOPHEN/HYDROcodone 325 MG/10 MG TAB PO PRN (19:24)
[2017-09-05] MEDS: SODIUM CHLORIDE 0.9% FLUSH 10 ML FLUSH IV FLUSH SCH (21:29)
[2017-09-05] MEDS: traZODone HCL 100 MG TAB PO SCH (21:29)
[2017-09-05] MEDS: ENALAPRILAT 1.25 MG/ML VIAL IV PUSH PRN (21:29)
[2017-09-05] MEDS: DOCUSATE SODIUM 50 MG/SENNA 8.6 MG TAB PO SCH (21:29)
[2017-09-05] MEDS: CELECOXIB 100 MG CAP PO SCH (21:29)
[2017-09-05] MEDS: guaiFENesin/CODEINE SYRUP 200 MG/20 MG/10 ML CUP PO PRN (21:30)
[2017-09-05] MEDS: BENZONATATE 100 MG CAP PO PRN (23:11)
[2017-09-06] VITALS (15 sets, daily range): BP systolic 140–194; BP diastolic 75–100; PULSE 80–107; RESP 18–21; TEMP 97.3–98.3; O2SAT 92–97
[2017-09-06] MEDS: ACETAMINOPHEN/HYDROcodone 325 MG/10 MG TAB PO PRN ×5 (01:44→20:36)
[2017-09-06] MEDS: cloNIDine HCL 0.1 MG TAB PO PRN ×2 (01:44→20:45)
[2017-09-06] MEDS: SODIUM CHLOR 0.9% 1000 ML INJ 1,000 ML IV SCH ×2 (04:23→15:31)
[2017-09-06] MEDS: methylPREDNISolone SOD SUCC 40 MG/1 ML VIAL IV PUSH SCH ×3 (05:19→20:36)
[2017-09-06] MEDS: ENALAPRILAT 1.25 MG/ML VIAL IV PUSH PRN ×2 (05:19→22:48)
[2017-09-06] MEDS: BENZONATATE 100 MG CAP PO PRN (05:19)
[2017-09-06 05:40] LABS: AUTOMATED NEUTROPHIL # 11.8 TH/MM3 (1.8-7.7); BASOPHIL # 0.1 TH/MM3 (0-0.2); BASOPHIL % 0.4 % (0.0-2.0); HEMATOCRIT 35.8 % (35.0-46.0); HEMOGLOBIN 11.8 GM/DL (11.6-15.3); LYMPH % 12.1 % (9.0-44.0); LYMPHOCYTE # 1.7 TH/MM3 (1.0-4.8); MEAN CELL VOLUME 89.6 FL (80.0-100.0); MEAN CORPUSCULAR HEMOGLOBIN 29.6 PG (27.0-34.0); MEAN PLATELET VOLUME 8.7 FL (7.0-11.0); MONO % 3.4 % (0.0-8.0); MONOCYTE # 0.5 TH/MM3 (0-0.9); NEUT % 84.1 % (16.0-70.0); PLATELET COUNT 449 TH/MM3 (150-450); RED CELL DISTRIBUTION WIDTH 15.3 % (11.6-17.2); WHITE BLOOD COUNT 14.1 TH/MM3 (4.0-11.0)
[2017-09-06 06:30] LABS: ALBUMIN 2.3 GM/DL (3.4-5.0); AST (GOT) 21 U/L (15-37); BICARBONATE 29.2 MEQ/L (21.0-32.0); BLOOD UREA NITROGEN 9 MG/DL (7-18); CALCIUM 8.5 MG/DL (8.5-10.1); CHLORIDE 104 MEQ/L (98-107); CREATININE 0.52 MG/DL (0.50-1.00); GLOMERULAR FILTRATION RATE 124 ML/MIN (>89); GLUCOSE,RANDOM 171 MG/DL (74-106); SODIUM (NA) 141 MEQ/L (136-145)
[2017-09-06 06:31] LABS: ALT (GPT) 40 U/L (10-53)
[2017-09-06 06:33] LABS: ALKALINE PHOSPHATASE 88 U/L (45-117); TOTAL BILIRUBIN ADULT 0.2 MG/DL (0.2-1.0); TOTAL PROTEIN 7.6 GM/DL (6.4-8.2)
[2017-09-06 07:41] LABS: BANDS 1 % (0-6); LYMPHOCYTES 5 % (9-44); MONOCYTES 5 % (0-8); MYELOCYTES 1 % (0-0); NEUTROPHIL # MANUAL DIFF 12.7 TH/MM3 (1.8-7.7); POLYS (SEG NEUTROPHILS) 88 % (16-70)
[2017-09-06] MEDS: RESP: ALBUTEROL 2.5 MG/IPRATROPIUM 0.5 MG NEB (SCH) NEB ×3 (08:00→20:05)
[2017-09-06] MEDS: CELECOXIB 100 MG CAP PO SCH ×2 (08:54→20:37)
[2017-09-06] MEDS: DOCUSATE SODIUM 50 MG/SENNA 8.6 MG TAB PO SCH ×2 (08:54→21:00)
[2017-09-06] MEDS: PANTOPRAZOLE SOD 20 MG DELAYED RELEASE TAB PO SCH (08:54)
[2017-09-06] MEDS: DOXYCYCLINE INJ 100 MG in SODIUM CHLORIDE 0.9% INJ 100 ML IV SCH ×2 (08:54→20:36)
[2017-09-06] MEDS: INSULIN ASPART SUPPLEMENTAL SCALE SQ SCH ×4 (08:54→20:38)
[2017-09-06] MEDS: PRAVASTATIN SOD 20 MG TAB PO SCH (08:55)
[2017-09-06] MEDS: NICOTINE 21 MG/24 HR PATCH T-DERMAL SCH (08:55)
[2017-09-06] MEDS: ESCITALOPRAM OXALATE 20 MG TAB PO SCH (08:55)
[2017-09-06] MEDS: GABAPENTIN 300 MG CAP PO SCH ×3 (08:55→17:04)
[2017-09-06] MEDS: REMOVE OLD PATCH T-DERMAL SCH (08:56)
[2017-09-06] MEDS: SODIUM CHLORIDE 0.9% FLUSH 10 ML FLUSH IV FLUSH SCH ×2 (08:56→20:37)
[2017-09-06] MEDS: LURASIDONE 80 MG TAB PO SCH (09:00)
[2017-09-06] MEDS: guaiFENesin/CODEINE SYRUP 200 MG/20 MG/10 ML CUP PO PRN ×2 (09:05→15:05)
[2017-09-06] MEDS ORDERED: PNEUMOCOCCAL POLYVALENT INJ 25 MCG/0.5 ML SYR IM ONE (10:00)
[2017-09-06] MEDS ORDERED: cefTRIAXone INJ 1,000 MG in SODIUM CHLORIDE 0.9% INJ 100 ML IV SCH (13:00)
[2017-09-06] MEDS ORDERED: AZITHROMYCIN INJ 500 MG in SODIUM CHLOR 0.9% 250 ML INJ 250 ML IV SCH (13:00)
--- NOTE | 2017-09-06 15:14 | HHI.PR ---
Subjective Remarks Patient reports her breathing slightly better today. She is still coughing a lot and having a hard time sleeping. Objective Vitals Vital Signs Date Time Temp Pulse Resp B/P (MAP) Pulse Ox O2 Delivery O2 Flow Rate FiO2 09/06/17 12:03 97.9 103 21 140/75 (96) 92 09/06/17 11:54 94 Nasal Cannula 2.00 09/06/17 08:03 97.8 84 21 140/100 (113) 93 09/06/17 06:08 178/92 (120) 09/06/17 04:13 80 09/06/17 04:00 98.3 97 18 94 09/06/17 00:11 92 09/06/17 00:00 97.3 107 18 186/93 (124) 92 09/05/17 21:18 Nasal Cannula 2.00 09/05/17 20:00 97.8 109 20 185/98 (127) 93 09/05/17 19:56 108 09/05/17 19:26 93 Nasal Cannula 2.00 09/05/17 18:13 98.2 101 18 192/108 (136) 94 190/110 (136) 09/05/17 17:13 09/05/17 17:12 110 18 138/68 (91) 95 Room Air I/O 09/05/17 09/05/17 09/05/17 09/06/17 09/06/17 09/06/17 07:00 15:00 23:00 07:00 15:00 23:00 Intake Total 600 ml 1250 ml 1093 ml Balance 600 ml 1250 ml 1093 ml Intake IV Total 600 ml 1250 ml 1093 ml # Voids 4 # Bowel Movements 1 Result Diagram: 09/06/17 0439 09/06/17 0439 Imaging Last Impressions Chest X-Ray 09/05/17 1020 Signed Impressions: Service Date/Time: September 10:35 - CONCLUSION: 1. No acute cardiopulmonary disease. Luke Li MD CT Angiography 09/05/17 0000 Signed Impressions: Service Date/Time: September 12:47 - CONCLUSION: 1. No evidence of pulmonary embolism. 2. Scattered patchy opacities bilaterally consistent with probable pneumonia. Clinical correlation is recommended. Followup CT of the chest after treatment for pneumonia is recommended to confirm resolution of these patchy opacities. 3. Tiny pericardial effusion. 4. Stable bilateral adrenal nodules measuring 2.6 x 1.5 cm on the right and 2.5 x 1.8 cm on the left. Carlos Lofton MD Objective Remarks GENERAL: This is a well-nourished, well-developed patient, in no apparent distress. CARDIOVASCULAR: Normal rate and regular rhythm without murmurs, gallops, or rubs. RESPIRATORY: Air movement is fair. Diffuse rhonchi and faint expiratory wheezing. GASTROINTESTINAL: Abdomen soft, non-tender, non-distended. Normal active bowel sounds MUSCULOSKELETAL: Extremities without cyanosis, or edema. NEURO: Alert & Oriented x4 to person, place, time, situation. Moves all ext x4 PSYCH: Appropriate mood and affect. A/P Assessment and Plan COPD exacerbation/ CAP The patient presents with worsening shortness of breath and coughing. She was influenza negative. Chest CT showed: No evidence of pulmonary embolism; Scattered patchy opacities bilaterally consistent with probable pneumonia; Followup CT of the chest after treatment for pneumonia is recommended to confirm resolution of these patchy opacities. S/p ceftriaxone and azithromycin in the ED. -Continue IV doxycycline to avoid interaction with her psychiatric medications. - Continue IV Solu-Medrol. - Standing and as needed nebulizers. - Oxygen as needed. - Incentive spirometry. - Encourage ambulation. - Sputum and blood cultures pending. - Smoking cessation instruction. - Robitussin-AC as needed. - Resume home COPD regimen as steroids and nebs were weaned off. Chronic pain The patient endorses chronic knee and back pain. - Physical therapy. - Continue [place] as needed. - Continue celecoxib. Diabetes The patient is on metformin as an outpatient. - Hold metformin. - Insulin sliding scale. Tobacco abuse The patient smokes 1 pack of cigarettes daily. - Cessation instruction. - Nicotine patch. Adrenal nodules CT scan revealed stable bilateral adrenal nodules measuring 2.6 x 1.5 cm on the right and 2.5 x 1.8 cm on the left. - Outpatient follow-up. PPx: Lovenox Discharge Planning Continue current treatment, if continues to improve, may potentially transition to oral medications and discharge home tomorrow. Syeda Youssef MD Sep 06, 2017 15:14
[2017-09-06] MEDS: ENOXAPARIN SODIUM 30 MG/0.3 ML SYRINGE SQ SCH (17:04)
[2017-09-06] MEDS: traZODone HCL 100 MG TAB PO SCH (20:37)
--- NOTE | 2017-09-06 23:18 | EKG ---
Date Performed: 09/05/2017 Time Performed: 11:38:15 PTAGE: 52 years EKG: SINUS TACHYCARDIA POSSIBLE RIGHT VENTRICULAR CONDUCTION DELAY ABNORMAL RHYTHM ECG INTERPRET ATION BASED ON A DEFAULT AGE OF 40 YEARS PREVIOUS TRACING : 11/29/2015 14.03 Compared to prior tracing no significant change DOCTOR: Jason Alexis Interpretating Date/Time 09/06/2017 23:18:43
[2017-09-07] VITALS: BP 179/82; PULSE 83; RESP 16; TEMP 97.4; O2SAT 92
[2017-09-07] MEDS: ACETAMINOPHEN/HYDROcodone 325 MG/10 MG TAB PO PRN ×2 (02:59→10:30)
[2017-09-07] MEDS: guaiFENesin/CODEINE SYRUP 200 MG/20 MG/10 ML CUP PO PRN ×2 (03:00→10:39)
[2017-09-07 04:00] VITALS: BP 172/100; PULSE 82; RESP 18; TEMP 98; O2SAT 98
[2017-09-07] MEDS: methylPREDNISolone SOD SUCC 40 MG/1 ML VIAL IV PUSH SCH (04:53)
[2017-09-07] MEDS: cloNIDine HCL 0.1 MG TAB PO PRN (04:53)
[2017-09-07 06:27] VITALS: BP 168/86
[2017-09-07] MEDS: SODIUM CHLOR 0.9% 1000 ML INJ 1,000 ML IV SCH (06:49)
[2017-09-07] MEDS: INSULIN ASPART SUPPLEMENTAL SCALE SQ SCH (08:00)
[2017-09-07 08:03] VITALS: BP 150/90; PULSE 81; RESP 21; TEMP 99.4; O2SAT 96
[2017-09-07] MEDS: RESP: ALBUTEROL 2.5 MG/IPRATROPIUM 0.5 MG NEB (SCH) NEB ×2 (08:54→12:47)
[2017-09-07 08:56] VITALS: O2SAT 98
[2017-09-07] MEDS: DOXYCYCLINE INJ 100 MG in SODIUM CHLORIDE 0.9% INJ 100 ML IV SCH (10:25)
[2017-09-07] MEDS: SODIUM CHLORIDE 0.9% FLUSH 10 ML FLUSH IV FLUSH SCH (10:27)
[2017-09-07] MEDS: GABAPENTIN 300 MG CAP PO SCH (10:28)
[2017-09-07] MEDS: ESCITALOPRAM OXALATE 20 MG TAB PO SCH (10:28)
[2017-09-07] MEDS: LURASIDONE 80 MG TAB PO SCH (10:28)
[2017-09-07] MEDS: CELECOXIB 100 MG CAP PO SCH (10:28)
[2017-09-07] MEDS: PRAVASTATIN SOD 20 MG TAB PO SCH (10:28)
[2017-09-07] MEDS: PANTOPRAZOLE SOD 20 MG DELAYED RELEASE TAB PO SCH (10:28)
[2017-09-07] MEDS: NICOTINE 21 MG/24 HR PATCH T-DERMAL SCH (10:29)
[2017-09-07] MEDS: REMOVE OLD PATCH T-DERMAL SCH (10:29)
[2017-09-07] MEDS: DOCUSATE SODIUM 50 MG/SENNA 8.6 MG TAB PO SCH (10:29)
[2017-09-07] MEDS ORDERED: PRED10PA PO (11:05)
[2017-09-07] MEDS ORDERED: Albuterol-Ipratropium Neb NEB (11:05)
[2017-09-07] MEDS ORDERED: DOXY100C PO (11:05)
--- NOTE | 2017-09-07 15:27 | HHI.DS ---
Discharge Summary Admission Date Sep 05, 2017 at 14:08 Discharge Date: Sep 07, 2017 Admitting Diagnosis bilateral pneumonia, sepsis, leukocytosis, hypoxia (1) Pneumonia ICD Code: J18.9 - Pneumonia, unspecified organism Procedures None Brief History - From Admission History of present illness from the admitting physician The patient is a 52-year-old female with a past medical history of COPD who is presenting to the hospital with shortness of breath and cough. She says her breathing is always poor but over the past couple of weeks she has experienced worsening of her shortness of breath and cough. She says that her significant other thought the flu and brought it home to her. She said that she did get her flu shot this year. She said that her breathing got a lot more difficult and her coughing has been uncontrollable. She is not on home oxygen. She does endorse grayish mucus production. She says that she has not noticed any fevers at home. She does continue to smoke cigarettes and knows that she needs to quit. She says she started to develop a hoarse voice last week. She denies any dysuria and has been having regular bowel movements. She complains of chronic pain in her knee and back. CBC/BMP: 09/06/17 0439 09/06/17 0439 Significant Findings Laboratory Tests Test 09/05/17 11:00 09/05/17 11:10 09/06/17 04:39 White Blood Count 19.8 TH/MM3 (4.0-11.0) 14.1 TH/MM3 (4.0-11.0) Platelet Count 474 TH/MM3 (150-450) Monocytes (%) (Auto) 8.5 % (0.0-8.0) Neutrophils # (Auto) 12.2 TH/MM3 (1.8-7.7) 11.8 TH/MM3 (1.8-7.7) Lymphocytes # (Auto) 5.5 TH/MM3 (1.0-4.8) Monocytes # (Auto) 1.7 TH/MM3 (0-0.9) Neutrophils # (Manual) 14.3 TH/MM3 (1.8-7.7) 12.7 TH/MM3 (1.8-7.7) Platelet Estimate HIGH (NORMAL) HIGH (NORMAL) Albumin 2.5 GM/DL (3.4-5.0) 2.3 GM/DL (3.4-5.0) Sodium Level 135 MEQ/L (136-145) Total Creatine Kinase 233 U/L (26-192) Creatine Kinase MB 5.9 NG/ML (0.5-3.6) Troponin I LESS THAN 0.02 NG/ML Neutrophils (%) (Auto) 84.1 % (16.0-70.0) Neutrophils % (Manual) 88 % (16-70) Lymphocytes % 5 % (9-44) Myelocytes 1 % (0-0) Platelet Morphology Comment ENLARGED (NORMAL) Random Glucose 171 MG/DL (74-106) Imaging Last Impressions Chest X-Ray 09/05/17 1020 Signed Impressions: Service Date/Time: September 10:35 - CONCLUSION: 1. No acute cardiopulmonary disease. Luke Li MD CT Angiography 09/05/17 0000 Signed Impressions: Service Date/Time: September 12:47 - CONCLUSION: 1. No evidence of pulmonary embolism. 2. Scattered patchy opacities bilaterally consistent with probable pneumonia. Clinical correlation is recommended. Followup CT of the chest after treatment for pneumonia is recommended to confirm resolution of these patchy opacities. 3. Tiny pericardial effusion. 4. Stable bilateral adrenal nodules measuring 2.6 x 1.5 cm on the right and 2.5 x 1.8 cm on the left. Carlos Lofton MD PE at Discharge GENERAL: This is a well-nourished, well-developed patient, in no apparent distress. CARDIOVASCULAR: Normal rate and regular rhythm without murmurs, gallops, or rubs. RESPIRATORY: Air movement is fair. Diffuse rhonchi and faint expiratory wheezing. GASTROINTESTINAL: Abdomen soft, non-tender, non-distended. Normal active bowel sounds MUSCULOSKELETAL: Extremities without cyanosis, or edema. NEURO: Alert & Oriented x4 to person, place, time, situation. Moves all ext x4 PSYCH: Appropriate mood and affect. Pt update on day of discharge Patient reports she is feeling much better. She wants to go home. Breathing more comfortably. Coughing less. Hospital Course 52-year-old female admitted with community-acquired pneumonia/COPD exacerbation. The patient was admitted and treated with IV antibiotics and IV Solu-Medrol. Her conditions improved. She is discharged on a prednisone taper and to continue treatment with oral antibiotics. Chest CT showed No evidence of pulmonary embolism; Scattered patchy opacities bilaterally consistent with probable pneumonia; Followup CT of the chest after treatment for pneumonia is recommended to confirm resolution of these patchy opacities. Patient is advised to follow-up outpatient to have repeat chest CT. Other conditions treated include: Chronic pain The patient endorses chronic knee and back pain. - Physical therapy. - Continue [place] as needed. - Continue celecoxib. Diabetes The patient is on metformin as an outpatient. -Metformin was held and she was treated with sliding scale insulin with Accu- Cheks. Metformin resumed on discharge. Tobacco abuse The patient smokes 1 pack of cigarettes daily. - Cessation instruction given. Adrenal nodules CT scan revealed stable bilateral adrenal nodules measuring 2.6 x 1.5 cm on the right and 2.5 x 1.8 cm on the left. - Outpatient follow-up advised. Pt Condition on Discharge: Good Discharge Disposition: Discharge Home Discharge Time: <= 30 minutes Discharge Instructions DIET: Follow Instructions for: Heart Healthy Diet Activities you can perform: Regular-No Restrictions New Medications: Doxycycline Hyclate (Doxycycline Hyclate) 100 Mg Cap 100 MG PO BID for Infection, #20 CAP 0 Refills Prednisone (21) 10 mg tab Dose Pack (Prednisone (21) 10 mg tab Dose Pack) 10 Mg Pack 10 MG PO DIRECTED for Inflammation, #1 DSPK 0 Refills [Albuterol-Ipratropium Neb] () 1 AMPULE NEBU 1 AMPULE NEB Q4HR NEB PRN for dyspnea, #1 BOX Continued Medications: Celecoxib (Celecoxib) 100 Mg Cap 100 MG PO BID for Pain Management, CAP 0 Refills Escitalopram (Escitalopram) 20 Mg Tab 20 MG PO DAILY, #30 TAB 0 Refills Fluticasone 12 GM Inh (Flovent Hfa 12 GM Inh) 220 Mcg/Act Inh 2 PUFF INH TID for Asthma Management, #1 INHALER 0 Refills Use daily at the same time. Gabapentin (Gabapentin) 600 Mg Tab 600 MG PO TID, #90 TAB 0 Refills Hydrocodone-Acetaminophen (Hydrocodone-Acetaminophen) 5-325 mg Tab 1 TAB PO Q12HR PRN for PAIN, TAB 0 Refills Ipratropium HFA 12.9 GM Inh (Atrovent HFA 12.9 GM Inh) 17 Mcg/Actuation Aer 2 PUFF INH TID, #1 INHALER 0 Refills Lurasidone (Latuda) 80 Mg Tab 80 MG PO DAILY, #30 TAB 0 Refills Metformin (Metformin) 850 Mg Tab 850 MG PO BIDPC for Blood Sugar Management, TAB 0 Refills Methocarbamol (Methocarbamol) 500 Mg Tab 500 MG PO TID for Muscle Spasm, #90 TAB 0 Refills Mometasone-Formoterol 120 Act Inh (Dulera 120 Act Inh) 200-5 Mcg/Act Inh 2 PUFF INH BID for Asthma Management, #1 INHALER 0 Refills Naproxen (Naproxen) 500 Mg Tab 500 MG PO BID, #60 TAB 0 Refills Omeprazole (Omeprazole) 20 Mg Tab 20 MG PO DAILY, #30 TAB 0 Refills Simvastatin (Simvastatin) 10 Mg Tab 10 MG PO DAILY for Cholesterol Management, #30 TAB 0 Refills Trazodone (Trazodone) 150 Mg Tablet 150 MG PO HS for Control Depression, #30 TAB 0 Refills Syeda Youssef MD Sep 07, 2017 15:27
== END 2017-09-07 13:20 | disposition home or self-care (01) | DRG 190 ==
LOC: NEPC 09:54 → NEDA 14:08 → N04B 17:42
PROVIDERS: ADMIT Hospitalist; ATTEND Family Medicine
DX: J44.1 Chronic obstructive pulmonary disease with (acute) exacerbation (principal); J18.9 Pneumonia, unspecified organism; E27.8 Other specified disorders of adrenal gland; J44.0 Chronic obstructive pulmonary disease with (acute) lower respiratory infection; G89.29 Other chronic pain; E11.9 Type 2 diabetes mellitus without complications; F17.210 Nicotine dependence, cigarettes, uncomplicated; F31.9 Bipolar disorder, unspecified; Z79.84 Long term (current) use of oral hypoglycemic drugs; Z23 Encounter for immunization
CPT/HCPCS: 71045; 71275; 80053; 82550; 82552; 82948; 83605; 83735; 83880; 84484; 85007; 85027; 85610; 85730; 87040; 87070; 87205; 87804; 90732; 93005; 94150; 94640; 94664; 96361; 96365; 96375; J0456; J0696; J1650; J1815; J2920; J2930; J7030; J7040; J7050; Q9967